=== PATIENT | male | born 1965 | race Caucasian/White ===

== ENCOUNTER → 2019-10-14 | Day surgery (SDC) | payer BC ==
[~2019-10-14] MED LIST: ACET325T21 PO; ESCITALOPRAM OX10 MG PO; HYDR25CA75 PO; IBUP400T18 PO; IV RINGERS SOLUTION,LACTATED 1,000 ML IV SCH; PROAIR RESPICL90 MCG IH; PROPOFOL 40 ML IV ONE; TEST5GEL TP
[2019-10-14 14:26] VITALS: BP 114/80
--- NOTE | 2019-10-18 15:08 | PATHOLOGY ---
[facility] Accession Number: [id number] . 01 Material submitted: . hepatic flexure - HEPATIC FLEXURE POLYP . 01 Clinical history: . None provided . 02 Diagnosis: Colon biopsies, hepatic flexure polyp: - Tubular adenoma. . ([facility]:mm; 10/18/2019) [facility], [facility] 10/18/2019 1024 Local . 02 Comment: There is no high grade dysplasia or evidence of malignancy. . ([facility]:mm; 10/18/2019) . 02 Electronically signed: . Jesse Granda MD, Pathologist NPI- [id number] . 01 Gross description: . The specimen is received in formalin, labeled "Bob White Sr., hepatic flexure". Received are two segments of pale moreira soft tissue ranging in size from 0.6 to 0.8 cm in maximum dimensions. The specimen is submitted entirely in cassette A1. ([facility]; 10/15/2019) QA/[facility] 10/15/2019 1917 Local . 02 Pathologist provided ICD-10: D12.3 . 02 CPT . 046587 Specimen Comment: A courtesy copy of this report has been sent to [phone] Specimen Comment: [phone] Specimen Comment: Report sent to / DR DAVE Performed at: 01 [facility] [address] [address], [place] [id number] MD Salvador Valencia MD Phone: [phone] Performed at: 02 [facility] [address] [place], [place] [id number] MD Jesse Granda MD Phone: [phone]
== END ==
LOC: SURG 10:42
PROVIDERS: ATTEND Internal Medicine Gastroenterology
DX: Z12.11 Encounter for screening for malignant neoplasm of colon (principal); D12.3 Benign neoplasm of transverse colon; K58.9 Irritable bowel syndrome, unspecified; K57.30 Diverticulosis of large intestine without perforation or abscess without bleeding; K64.8 Other hemorrhoids; K21.9 Gastro-esophageal reflux disease without esophagitis; F32.9 Major depressive disorder, single episode, unspecified; F41.9 Anxiety disorder, unspecified
CPT/HCPCS: 45385; 88305; J2704